=== PATIENT | female | born 1975 | race Caucasian/White ===

== ENCOUNTER 2018-04-28 23:45 | Emergency (ER) | payer MEDICAID ==
[~2018-04-28] VITALS: Ht 157.5 cm; Wt 62.6 kg
[2018-04-28 23:49] VITALS: BP 126/71
[2018-04-29] MEDS ORDERED: KEN0.1O TP (00:19)
== END 2018-04-29 00:32 | disposition home or self-care (01) ==
LOC: ER 23:46
DX: L23.9 Allergic contact dermatitis, unspecified cause (principal)
CPT/HCPCS: 99283

== ENCOUNTER 2018-05-18 14:53 | Outpatient (CLI) | payer MEDICAID ==
[~2018-05-18 14:53] MED LIST: KEN0.1O TP
== END 2018-05-18 23:59 | disposition home or self-care (01) ==
LOC: CARD DIAG 14:53
PROVIDERS: ATTEND Family Medicine
DX: I08.1 Rheumatic disorders of both mitral and tricuspid valves (principal); M54.2 Cervicalgia; Z86.79 Personal history of other diseases of the circulatory system
CPT/HCPCS: 93306

== ENCOUNTER 2021-10-22 02:58 | Emergency (ER) | payer MEDICAID ==
[~2021-10-22] VITALS: Ht 162.6 cm; Wt 61.3 kg
[2021-10-22 03:03] VITALS: BP 127/60
[2021-10-22 06:56] LABS: UA COLLECTION TYPE CLN CATCH MIDSTREAM
[2021-10-22 07:12] LABS: RBC,URINE TNTC /HPF (0-2)
[2021-10-22 07:17] LABS: COLOR,URINE Red (Yellow)
[2021-10-22 07:18] LABS: CLARITY,URINE Bloody (Clear)
[2021-10-22 07:25] LABS: BASOPHILS % (AUTO) 0.4 % (0-1); EOSINOPHILS % (AUTO) 0.4 % (0-6); HEMATOCRIT 39.8 % (35.0-45.0); HEMOGLOBIN 13.8 g/dl (12.0-16.0); LYMPHOCYTES # (AUTO) 1.4 X10'3 (1.1-4.8); LYMPHOCYTES % (AUTO) 23.7 % (21-51); MEAN CORPUSCULAR HEMOGLOBIN 31.1 PG (27.0-31.0); MEAN CORPUSCULAR HGB CONC 34.6 g/dL (33.0-36.5); MEAN CORPUSCULAR VOLUME 89.8 FL (78-98); MEAN PLATELET VOLUME 7.3 FL (7.4-10.4); MONOCYTES # (AUTO) 0.4 X10'3 (0-0.9); MONOCYTES % (AUTO) 5.9 % (2-12); NEUTROPHILS # (AUTO) 4.1 X10'3 (1.8-7.7); NEUTROPHILS % (AUTO) 69.6 % (42-75); PLATELET COUNT 355 X10'3 (140-440); RED BLOOD COUNT 4.43 X10'6 (4.20-5.60); RED CELL DISTRIBUTION WIDTH 13.1 % (11.5-14.5); WHITE BLOOD COUNT 5.9 X10'3 (4.5-11.0)
[2021-10-22 07:28] LABS: BACTERIA,URINE FEW /HPF (Neg); CAL OXALATE CRYSTALS FEW /HPF (NEGATIVE); SQUAMOUS EPITHELIAL CELL,UR NONE SEEN /LPF (FEW); WBC,URINE 0-4 /HPF (0-4)
[2021-10-22 07:36] LABS: ALANINE AMINOTRANSFERASE 26 U/L (12-78); ALKALINE PHOSPHATASE 72 IU/L (46-116); ANION GAP 12 (8-16); ASPARTATE AMINO TRANSFERASE 15 U/L (10-37); BILIRUBIN,TOTAL 0.5 MG/DL (0.1-1.0); BLOOD UREA NITROGEN 12 MG/DL (7-18); BUN/CREATININE RATIO 19.7 (6.6-38.0); CALCIUM 8.9 MG/DL (8.5-10.1); CHLORIDE 103 MMOL/L (99-107); CREATININE 0.61 MG/DL (0.40-0.90); GLUCOSE 106 MG/DL (70-104); POTASSIUM 3.6 MMOL/L (3.5-5.1); SODIUM 141 MMOL/L (135-145); TOTAL CARBON DIOXIDE 26.3 MMOL/L (24-32); eGFR > 90 ML/MIN
[2021-10-22 08:40] LABS: URINE HCG NEGATIVE (NEG)
== END 2021-10-22 08:13 | disposition home or self-care (01) ==
LOC: ER 02:58
DX: R31.9 Hematuria, unspecified (principal); R10.31 Right lower quadrant pain; R11.0 Nausea
CPT/HCPCS: 36415; 80053; 81001; 81025; 85025; 85610; 99283